=== PATIENT | female | born 1955 | race Caucasian/White ===

== ENCOUNTER 2017-02-14 12:16 | Inpatient (IN) | payer OTHER ==
[2017-02-14] VITALS (8 sets, daily range): BP systolic 122–183; BP diastolic 67–80
[~2017-02-14] VITALS: Ht 152.4 cm; Wt 71.2 kg
--- NOTE | ~2017-02-14 | PROC NOTE ---
[place], [place] PROCEDURE NOTE NAME: [facility]CO [facility] [id number] UNIT #: [id number] ROOM: 412 DOCTOR: SUSANA FRANK BIRTHDATE: [birth year] DOS: 02/15/2017 PROCEDURE: Modified barium swallow. PAST MEDICAL HISTORY: The patient has an improved right basilar pneumonia with residual infiltrate per recent chest x-ray. She has a history of diabetes, obesity, UTI, dysphagia, sepsis, acute renal failure, diabetes mellitus and is currently on an ADA 1800-calorie diet. METHODS AND MATERIALS: The patient was seated upright in a wheelchair. She was viewed in the lateral plane. She was able to follow directions and self-feed. The patient denies neuro history. She denies chronic pneumonia. Reports she lives at home and cares for herself. She is edentulous, reports she does not have dentures and has difficulty chewing regular food. Therefore, she was administered thin liquid barium via cup and pudding mixed with paste and a soft piece of bread mixed with barium paste. ORAL PHASE: The patient demonstrated adequate mastication, bolus formation, transfer of a bolus, and had no oral residue. She took a large bite of solid food and did use multiple swallows, but adequately controlled them and her oral phase was functional and normal on all consistencies. PHARYNGEAL PHASE: The patient demonstrated adequate laryngeal elevation, adequate airway protection, no residue in the pharynx, no penetration aspiration. Her overall pharyngeal phase was normal. RECOMMENDATIONS AND IMPRESSION: The patient has normal oral and pharyngeal phases of the swallow. No therapy is recommended. It is recommended she receives a mechanical soft diet due to being edentulous and reporting she has difficulty chewing regular foods. Thank you for this referral. SUSANA FRANK CM:PROCNOTE:PROCEDURE NOTE [id number] SUSANA FRANK
[~2017-02-14 12:16] MED LIST: ABILIFY5 MG PO; AMOXICILLIN500 M2 PO; ASPIRIN CHEWABL81 MG PO; GABAPENTIN100 M2 PO; GLIPIZIDE XL5 M1 PO; GLIPIZIDE5 MG PO; HUMALOG100 U/ML SC; IMODIUM A-D2 M2 PO; INVEGA9 MG PO; JANUVIA100 MG PO; LAC CREAM12% TP; LEVAQUIN750 M1 PO; LEXAPRO10 MG PO; LISINOPRIL10 M1 PO; METFOMIN HYDRO850 MG PO; METFORMIN1000 MG PO; MIRTAZAPINE15 M2 PO; MUCINEX ER600 MG PO; MULTI VITAMINS1 TAB PO; Motrin,Rufen800 MG PO; NOVOLOG MI100 UNIT/1 SQ; PRAVASTATIN SOD20 MG PO; PREDNISONE10 MG PO; RISPERDAL0.5 MG PO; RISPERDAL2 M1 PO; TOUJEO300 U/ML SC; TYLENOL325 M1 PO; VITAMIN D50000 I3 PO; VITAMIN D50000 UNIT PO; ZESTRIL10 MG PO
[2017-02-14 12:57] LABS: HEMATOCRIT 34.5 % (37.0-47.0); HEMOGLOBIN 11.8 g/dl (12.0-16.0); MEAN CELL VOLUME 84.4 fl (81.0-99.0); MEAN CORPUSCULAR HGB 28.9 pg (27.0-31.0); MEAN CORPUSCULAR HGB CONC 34.2 g/dl (33.0-37.0); MEAN PLATELET VOLUME 9.2 fl (9.6-12.3); PLATELET COUNT AUTOMATED 279 10*3/uL (130-400); RED BLOOD COUNT 4.09 10*6/uL (4.10-5.10); RED CELL DISTRI WIDTH 13.5 % (0-14.5); WHITE BLOOD COUNT 13.2 10*3/uL (4.8-10.8)
[2017-02-14 13:15] LABS: ALBUMIN 3.1 gm/dl (3.1-4.5); ALKALINE PHOSPHATASE 57 U/L (45-117); BILIRUBIN, TOTAL 0.4 mg/dl (0.2-1.0); BUN 37 mg/dl (7-24); CARBON DIOXIDE 26 mmol/L (21-32); CHLORIDE 95 mmol/L (98-107); EST GLOM FILT AFRICAN AMERICAN 51 ml/min; GLUCOSE 403 mg/dL (65-99); POTASSIUM 4.4 mmol/L (3.5-5.1); SGOT/AST 7 IU/L (3-35); SGPT/ALT 21 U/L (12-78); SODIUM 135 mmol/L (136-145); TOTAL PROTEIN 6.6 gm/dL (6.4-8.2)
[2017-02-14 13:16] LABS: LYMPHOCYTE # 0.4 10*3/uL (1.3-4.4); MONOCYTE # 0.5 10*3/uL (0.1-1.0); MYELOCYTES 2 % (0-0); NEUTROPHILS 91 % (47-73); PLATELET SUFFICIENCY NORMAL (NORMAL); TOTAL CELLS COUNTED 100 #CELLS; TROPONIN I < 0.015 ng/ml (<0.045)
[2017-02-14] MEDS ORDERED: LISINOPRIL-HYDR1 TA3 PO (16:59)
[2017-02-14] MEDS ORDERED: COGENTIN0.5 MG PO (17:02)
[2017-02-14] MEDS ORDERED: GUAIFENESIN600 MG PO (17:09)
[2017-02-14 18:19] LABS: CKMB 1.4 ng/ml (0.5-3.6); CPK 53 U/L (26-192); TROPONIN I < 0.015 ng/ml (<0.045)
[2017-02-15] VITALS: BP 158/83
[2017-02-15 00:40] LABS: CKMB 0.9 ng/ml (0.5-3.6); CPK 39 U/L (26-192)
[2017-02-15 00:41] LABS: TROPONIN I < 0.015 ng/ml (<0.045)
[2017-02-15 06:11] LABS: EOS # 0.1 10*3/uL (0.0-0.4); EOS % 0.9 % (1.0-4.0); HEMATOCRIT 30.6 % (37.0-47.0); HEMOGLOBIN 10.2 g/dl (12.0-16.0); IG # 0.1 10*3/uL (0.0-0.1); LYMPH # 1.7 10*3/uL (1.3-4.4); LYMPH % 24.3 % (27.0-41.0); MEAN CORPUSCULAR HGB 28.7 pg (27.0-31.0); MEAN CORPUSCULAR HGB CONC 33.3 g/dl (33.0-37.0); MEAN PLATELET VOLUME 9.1 fl (9.6-12.3); MONO # 0.6 10*3/uL (0.1-1.0); MONO % 8.2 % (3.0-9.0); NEUT # 4.6 10*3/uL (2.3-7.9); NEUT % 64.8 % (47.0-73.0); PLATELET COUNT AUTOMATED 217 10*3/uL (130-400); RED BLOOD COUNT 3.56 10*6/uL (4.10-5.10); RED CELL DISTRI WIDTH 13.3 % (0-14.5); WHITE BLOOD COUNT 7.1 10*3/uL (4.8-10.8)
[2017-02-15 06:26] LABS: CPK 36 U/L (26-192)
[2017-02-15 06:32] LABS: CKMB < 0.5 ng/ml (0.5-3.6); TROPONIN I < 0.015 ng/ml (<0.045)
[2017-02-15 06:39] LABS: CARBON DIOXIDE 26 mmol/L (21-32); CHLORIDE 103 mmol/L (98-107); CHOLESTEROL 156 mg/dL (<200); EST GLOM FILT AFRICAN AMERICAN > 60 ml/min; GLUCOSE 176 mg/dL (65-99); HDL CHOLESTEROL 40 mg/dl (40-60); LDL CHOLESTEROL 70 mg/dL (9-159); MAGNESIUM 1.4 mg/dL (1.5-2.1); PHOSPHOROUS 2.7 mg/dL (2.5-4.9); POTASSIUM 3.7 mmol/L (3.5-5.1); SODIUM 140 mmol/L (136-145); TRIGLYCERIDES 228 mg/dl (<150); VLDL CHOLESTEROL 46 mg/dL (6-40)
[2017-02-15 06:46] LABS: FREE T4 1.44 ng/dl (0.76-1.46)
[2017-02-15 06:47] LABS: BUN 25 mg/dl (7-24)
[2017-02-15 08:00] VITALS: BP 190/74
[2017-02-15 12:00] VITALS: BP 168/76
[2017-02-15] MEDS ORDERED: COREG6.25 MG PO (13:22)
== END 2017-02-15 13:55 | disposition home or self-care (01) | DRG 871 ==
LOC: ED 12:16 → 4E 14:48 → EDHOLD 14:48 → 4E 15:21
PROVIDERS: Internal Medicine; Nurse Practitioner Family
PROC: BD1BYZZ Fluoroscopy of Mouth/Oropharynx using Other Contrast (ICD-10-PCS; principal; 2017-02-15)
DX: A41.9 Sepsis, unspecified organism (principal); N17.0 Acute kidney failure with tubular necrosis; E44.0 Moderate protein-calorie malnutrition; F32.2 Major depressive disorder, single episode, severe without psychotic features; D64.9 Anemia, unspecified; E11.65 Type 2 diabetes mellitus with hyperglycemia; I10 Essential (primary) hypertension; E66.9 Obesity, unspecified; E78.5 Hyperlipidemia, unspecified; F41.9 Anxiety disorder, unspecified; R13.10 Dysphagia, unspecified; Z87.440 Personal history of urinary (tract) infections; Z90.710 Acquired absence of both cervix and uterus; Z98.49 Cataract extraction status, unspecified eye; Z82.49 Family history of ischemic heart disease and other diseases of the circulatory system; Z88.8 Allergy status to other drugs, medicaments and biological substances; Z79.82 Long term (current) use of aspirin; Z79.899 Other long term (current) drug therapy; Z79.84 Long term (current) use of oral hypoglycemic drugs; Z68.28 Body mass index [BMI] 28.0-28.9, adult

== ENCOUNTER → 2017-03-21 | Outpatient (CLI) | payer OTHER ==
[~2017-03-21] MED LIST changes: +COGENTIN0.5 MG PO; +COREG6.25 MG PO; +GUAIFENESIN600 MG PO; +LISINOPRIL-HYDR1 TA3 PO
[2017-03-21 11:18] LABS: HEMATOCRIT 31.7 % (37.0-47.0); HEMOGLOBIN 10.5 g/dl (12.0-16.0); IRF 12.5 % (2.4-13.3); MEAN CELL VOLUME 84.1 fl (81.0-99.0); MEAN CORPUSCULAR HGB 27.9 pg (27.0-31.0); MEAN CORPUSCULAR HGB CONC 33.1 g/dl (33.0-37.0); MEAN PLATELET VOLUME 9.2 fl (9.6-12.3); PLATELET COUNT AUTOMATED 338 10*3/uL (130-400); RED BLOOD COUNT 3.77 10*6/uL (4.10-5.10); RET-He 32.5 pg (32.1-37.9); WHITE BLOOD COUNT 7.6 10*3/uL (4.8-10.8)
[2017-03-21 11:43] LABS: BASOPHIL # 0.2 10*3/uL (0-0.1); BASOPHILS 2 % (0-1); EOSINOPHIL # 0.4 10*3/uL (0-0.4); EOSINOPHILS 5 % (1-4); LYMPHOCYTE # 1.1 10*3/uL (1.3-4.4); MONOCYTE # 0.2 10*3/uL (0.1-1.0); NEUTROPHIL # 5.7 10*3/uL (2.3-7.9); NEUTROPHILS 75 % (47-73); OVALOCYTES FEW; PLATELET SUFFICIENCY NORMAL (NORMAL); TOTAL CELLS COUNTED 100 #CELLS
[2017-03-21 11:46] LABS: ALBUMIN 3.6 gm/dl (3.1-4.5); BILIRUBIN, TOTAL 0.4 mg/dl (0.2-1.0); POTASSIUM 4.2 mmol/L (3.5-5.1)
[2017-03-21 11:51] LABS: THYROID STIM HORMONE (HS) 1.8 uIU/ml (0.358-4.75)
[2017-03-21 18:43] LABS: BILIRUBIN NEGATIVE (NEGATIVE); BLOOD NEGATIVE (NEGATIVE); CLARITY CLEAR (CLEAR); COLOR YELLOW (YELLOW); GLUCOSE NEGATIVE (NEGATIVE); KETONE NEGATIVE (NEGATIVE); LEUKO ESTERASE 2+ (NEGATIVE); NITRITE NEGATIVE (NEGATIVE); PROTEIN NEGATIVE (NEGATIVE); UROBILINOGEN 0.2 E.U./dl (0.2-1.0)
[2017-03-21 18:49] LABS: RBC 0-2 rbc/hpf (0-2)
[2017-03-21 18:50] LABS: BACTERIA 1+; URINE REFLEX COMMENT YES (NO)
== END | disposition home or self-care (01) ==
LOC: LAB 10:29
PROVIDERS: Family Medicine
DX: D64.9 Anemia, unspecified (principal); R63.4 Abnormal weight loss; R53.83 Other fatigue; R63.0 Anorexia

== ENCOUNTER → 2017-04-01 | Outpatient (CLI) | payer OTHER | END | disposition home or self-care (01) | LOC: MAMMO 01:22 | DX: Z12.31 Encounter for screening mammogram for malignant neoplasm of breast (principal) ==

== ENCOUNTER → 2017-04-12 | Day surgery (SDC) | payer OTHER ==
[~2017-04-12] VITALS: Ht 152.4 cm; Wt 62.6 kg
[~2017-04-12] MED LIST changes: +LATU40TA1 PO; +TRINTELLIX10 MG PO
--- NOTE | ~2017-04-12 | PROC NOTE ---
[place], [place] PROCEDURE NOTE NAME: BRIANNE NOLASCO UNIT #: [id number] ROOM: DOCTOR: JOHNATHAN NUNO MD BIRTHDATE: [birth year] DOS: 04/12/2017 PREOPERATIVE DIAGNOSIS: Screening examination. POSTOPERATIVE DIAGNOSIS: Sigmoid polyp. PROCEDURE: Colonoscopy with polypectomy. ENDOSCOPIST: Johnathan Nuno MD PROVIDER ENROLLMENT SPECIALIST: MS4. ANESTHESIA: MAC. INDICATIONS: This is a 62-year-old lady with a previous history of a colonoscopy done approximately 15 years ago who is here for another screening examination. The procedure and its complications explained to the patient in detail preoperatively. Complications that were discussed included but were not limited to, bleeding, colon perforation, and missed lesions. She agreed to proceed. DESCRIPTION OF PROCEDURE: After identifying the patient, the patient was brought to the endoscopy suite and placed in the left lateral position. After time-out procedure was called, IV sedation was administered and a digital rectal exam was performed. This was within normal limits. An adult colonoscope was now introduced into the anal canal and advanced sequentially into the rectum, descending colon, transverse colon and ascending colon up to the cecum. The prep was found to be optimal. Upon reaching the cecum, the scope was withdrawn. Total withdrawal time was approximately 7 minutes and 45 seconds. During the procedure of the withdrawal, there was a polyp that was seen at 30 cm from the anal verge. This was found to be pedunculated. It was removed with the help of a snare and then removed and sent for histopathological diagnosis. Hemostasis was confirmed by reintroducing the scope and visualizing the polypectomy site again. After the scope was withdrawn, the patient was taken to the recovery room in stable fashion. Based on these findings, the patient is recommended to have another colonoscopy in 1 to 3 years. I will discuss this finding with the patient's family and with the patient itself in 2 weeks when I see her in the office. Thank you very much. [place], [place] PROCEDURE NOTE NAME: BRIANNE NOLASCO UNIT #: [id number] ROOM: DOCTOR: JOHNATHAN NUNO MD BIRTHDATE: [birth year] Johnathan Nuno MD CM:PROCNOTE:PROCEDURE NOTE [id number] JOHNATHAN NUNO MD
[2017-04-12 06:30] VITALS: BP 151/75
[2017-04-12 08:18] VITALS: BP 132/65
[2017-04-12 08:33] VITALS: BP 141/68
[2017-04-12 08:48] VITALS: BP 149/70
== END | disposition home or self-care (01) ==
LOC: SDC 04-10 11:00
DX: Z12.11 Encounter for screening for malignant neoplasm of colon (principal); D12.5 Benign neoplasm of sigmoid colon; I10 Essential (primary) hypertension; E78.00 Pure hypercholesterolemia, unspecified; E11.9 Type 2 diabetes mellitus without complications; F41.9 Anxiety disorder, unspecified; F20.0 Paranoid schizophrenia; Z90.710 Acquired absence of both cervix and uterus; Z98.49 Cataract extraction status, unspecified eye; Z83.3 Family history of diabetes mellitus; Z80.9 Family history of malignant neoplasm, unspecified; Z82.49 Family history of ischemic heart disease and other diseases of the circulatory system

== ENCOUNTER 2017-06-21 10:23 | Inpatient (IN) | payer OTHER ==
[~2017-06-21] VITALS: Ht 152.4 cm; Wt 64.4 kg
[2017-06-21 10:30] VITALS: BP 120/60
[2017-06-21 11:35] VITALS: BP 120/67
[2017-06-21 11:56] LABS: BASO % 0.8 % (0.0-1.0); EOS # 0.4 10*3/uL (0.0-0.4); EOS % 7.2 % (1.0-4.0); HEMATOCRIT 27.5 % (37.0-47.0); HEMOGLOBIN 9.3 g/dl (12.0-16.0); LYMPH # 1.1 10*3/uL (1.3-4.4); LYMPH % 23.2 % (27.0-41.0); MEAN CELL VOLUME 85.1 fl (81.0-99.0); MEAN CORPUSCULAR HGB 28.8 pg (27.0-31.0); MEAN CORPUSCULAR HGB CONC 33.8 g/dl (33.0-37.0); MEAN PLATELET VOLUME 9.2 fl (9.6-12.3); MONO # 0.4 10*3/uL (0.1-1.0); MONO % 7.2 % (3.0-9.0); NEUT % 61.2 % (47.0-73.0); PLATELET COUNT AUTOMATED 234 10*3/uL (130-400); RED BLOOD COUNT 3.23 10*6/uL (4.10-5.10); RED CELL DISTRI WIDTH 14.1 % (0-14.5); WHITE BLOOD COUNT 4.8 10*3/uL (4.8-10.8)
[2017-06-21 12:02] LABS: INTERNATIONAL NORM RATIO 1.1 (2.0-3.5); PROTHROMBIN TIME 11.3 SECONDS (9.0-12.4)
[2017-06-21 12:09] LABS: ALBUMIN 3.1 gm/dl (3.1-4.5); ALKALINE PHOSPHATASE 42 U/L (45-117); BILIRUBIN, TOTAL 0.1 mg/dl (0.2-1.0); BUN 36 mg/dl (7-24); C-REACTIVE PROTEIN 0.31 MG/DL (0-0.3); CARBON DIOXIDE 21 mmol/L (21-32); CHLORIDE 105 mmol/L (98-107); CPK 24 U/L (26-192); EST GLOM FILT AFRICAN AMERICAN 44 ml/min; GLUCOSE 116 mg/dL (65-99); MAGNESIUM 1.2 mg/dL (1.5-2.1); POTASSIUM 4.4 mmol/L (3.5-5.1); SGOT/AST 8 IU/L (3-35); SGPT/ALT 17 U/L (12-78); SODIUM 137 mmol/L (136-145); TOTAL PROTEIN 6.8 gm/dL (6.4-8.2)
[2017-06-21 12:10] LABS: CKMB < 0.5 ng/ml (0.5-3.6); TROPONIN I < 0.015 ng/ml (<0.045)
[2017-06-21 12:30] VITALS: BP 135/65
[2017-06-21 13:48] LABS: LA>2 REFLEX 2 HR DRAW NOW
[2017-06-21 14:53] LABS: LA>2 RFLX FOLLOW UP AT 2 HRS 3.2 mmol/L (0.4-2.0)
[2017-06-21 16:00] VITALS: BP 142/77
[2017-06-21 16:38] LABS: LA>2 REFLEX 4 HR DRAW NOW
[2017-06-21 20:00] VITALS: BP 156/75
[2017-06-22] VITALS: BP 158/75
[2017-06-22 06:16] LABS: BASO % 0.5 % (0.0-1.0); EOS # 0.3 10*3/uL (0.0-0.4); EOS % 6.3 % (1.0-4.0); HEMATOCRIT 24.8 % (37.0-47.0); HEMOGLOBIN 8.6 g/dl (12.0-16.0); LYMPH # 1.2 10*3/uL (1.3-4.4); LYMPH % 29.4 % (27.0-41.0); MEAN CELL VOLUME 84.6 fl (81.0-99.0); MEAN CORPUSCULAR HGB 29.4 pg (27.0-31.0); MEAN CORPUSCULAR HGB CONC 34.7 g/dl (33.0-37.0); MEAN PLATELET VOLUME 9.1 fl (9.6-12.3); MONO # 0.4 10*3/uL (0.1-1.0); MONO % 9.1 % (3.0-9.0); NEUT # 2.1 10*3/uL (2.3-7.9); NEUT % 54.4 % (47.0-73.0); PLATELET COUNT AUTOMATED 215 10*3/uL (130-400); RED BLOOD COUNT 2.93 10*6/uL (4.10-5.10); WHITE BLOOD COUNT 3.9 10*3/uL (4.8-10.8)
[2017-06-22 06:38] LABS: BILIRUBIN NEGATIVE (NEGATIVE); BLOOD NEGATIVE (NEGATIVE); CLARITY CLEAR (CLEAR); COLOR YELLOW (YELLOW); GLUCOSE NEGATIVE (NEGATIVE); KETONE NEGATIVE (NEGATIVE); LEUKO ESTERASE NEGATIVE (NEGATIVE); NITRITE NEGATIVE (NEGATIVE); PROTEIN NEGATIVE (NEGATIVE); SPECIFIC GRAVITY <= 1.005 (1.005-1.030); UROBILINOGEN 0.2 E.U./dl (0.2-1.0)
[2017-06-22 06:41] LABS: INTERNATIONAL NORM RATIO 1.1 (2.0-3.5); PROTHROMBIN TIME 11.7 SECONDS (9.0-12.4)
[2017-06-22 06:42] LABS: ALBUMIN 2.9 gm/dl (3.1-4.5); BILIRUBIN, TOTAL 0.2 mg/dl (0.2-1.0); MAGNESIUM 1.2 mg/dL (1.5-2.1); PHOSPHOROUS 3.7 mg/dL (2.5-4.9); POTASSIUM 3.9 mmol/L (3.5-5.1)
[2017-06-22 06:47] LABS: URINE REFLEX COMMENT NO (NO)
[2017-06-22 06:47] LABS: TOTAL PROTEIN 6.1 gm/dL (6.4-8.2)
[2017-06-22 06:51] LABS: HEMOGLOBIN A1c 6.4 % (4.8-5.6)
[2017-06-22 07:02] LABS: THYROID STIM HORMONE (HS) 5.31 uIU/ml (0.358-4.75)
[2017-06-22 08:00] VITALS: BP 154/68
[2017-06-22 10:09] LABS: VITAMIN D, 25-HYDROXY 36.2 ng/mL (30-100)
[2017-06-22 10:13] LABS: FOLIC ACID > 24.00 ng/mL (>5.38)
[2017-06-22 12:00] VITALS: BP 147/69
[2017-06-22 16:00] VITALS: BP 154/70
[2017-06-22 20:00] VITALS: BP 173/75
[2017-06-23] VITALS: BP 143/64
[2017-06-23 06:30] LABS: BASO % 0.7 % (0.0-1.0); EOS # 0.3 10*3/uL (0.0-0.4); EOS % 6.5 % (1.0-4.0); HEMATOCRIT 27.1 % (37.0-47.0); HEMOGLOBIN 9.2 g/dl (12.0-16.0); LYMPH # 1.4 10*3/uL (1.3-4.4); LYMPH % 31.2 % (27.0-41.0); MEAN CELL VOLUME 84.4 fl (81.0-99.0); MEAN CORPUSCULAR HGB 28.7 pg (27.0-31.0); MEAN CORPUSCULAR HGB CONC 33.9 g/dl (33.0-37.0); MEAN PLATELET VOLUME 8.7 fl (9.6-12.3); MONO # 0.4 10*3/uL (0.1-1.0); MONO % 8.3 % (3.0-9.0); NEUT # 2.4 10*3/uL (2.3-7.9); NEUT % 53.1 % (47.0-73.0); PLATELET COUNT AUTOMATED 224 10*3/uL (130-400); RED BLOOD COUNT 3.21 10*6/uL (4.10-5.10); RED CELL DISTRI WIDTH 13.9 % (0-14.5); WHITE BLOOD COUNT 4.5 10*3/uL (4.8-10.8)
[2017-06-23 06:55] LABS: BUN 25 mg/dl (7-24); CARBON DIOXIDE 23 mmol/L (21-32); CHLORIDE 110 mmol/L (98-107); EST GLOM FILT AFRICAN AMERICAN > 60 ml/min; GLUCOSE 109 mg/dL (65-99); POTASSIUM 3.8 mmol/L (3.5-5.1); SODIUM 143 mmol/L (136-145)
[2017-06-23 08:00] VITALS: BP 137/64
[2017-06-23 12:00] VITALS: BP 134/67
[2017-06-23 16:00] VITALS: BP 136/86
[2017-06-23 20:00] VITALS: BP 149/68
[2017-06-24] VITALS: BP 162/73
[2017-06-24 06:46] LABS: BASO % 0.6 % (0.0-1.0); EOS # 0.3 10*3/uL (0.0-0.4); EOS % 5.3 % (1.0-4.0); HEMATOCRIT 26.9 % (37.0-47.0); HEMOGLOBIN 9.3 g/dl (12.0-16.0); LYMPH # 1.7 10*3/uL (1.3-4.4); LYMPH % 31.8 % (27.0-41.0); MEAN CELL VOLUME 85.1 fl (81.0-99.0); MEAN CORPUSCULAR HGB 29.4 pg (27.0-31.0); MEAN CORPUSCULAR HGB CONC 34.6 g/dl (33.0-37.0); MEAN PLATELET VOLUME 8.8 fl (9.6-12.3); MONO # 0.5 10*3/uL (0.1-1.0); MONO % 8.5 % (3.0-9.0); NEUT # 2.8 10*3/uL (2.3-7.9); NEUT % 53.6 % (47.0-73.0); PLATELET COUNT AUTOMATED 229 10*3/uL (130-400); RED BLOOD COUNT 3.16 10*6/uL (4.10-5.10); RED CELL DISTRI WIDTH 13.9 % (0-14.5); WHITE BLOOD COUNT 5.3 10*3/uL (4.8-10.8)
[2017-06-24 07:11] LABS: BUN 21 mg/dl (7-24); CARBON DIOXIDE 25 mmol/L (21-32); CHLORIDE 109 mmol/L (98-107); EST GLOM FILT AFRICAN AMERICAN > 60 ml/min; GLUCOSE 117 mg/dL (65-99); POTASSIUM 3.6 mmol/L (3.5-5.1); SODIUM 141 mmol/L (136-145)
[2017-06-24 08:00] VITALS: BP 100/60
[2017-06-24 12:00] VITALS: BP 165/83
[2017-06-24 16:00] VITALS: BP 141/68
[2017-06-24 20:00] VITALS: BP 146/64
[2017-06-25] VITALS: BP 122/63
[2017-06-25 06:11] LABS: POTASSIUM 3.6 mmol/L (3.5-5.1)
[2017-06-25 06:14] LABS: BASO % 0.4 % (0.0-1.0); EOS # 0.3 10*3/uL (0.0-0.4); EOS % 3.4 % (1.0-4.0); HEMATOCRIT 27.7 % (37.0-47.0); HEMOGLOBIN 9.3 g/dl (12.0-16.0); LYMPH # 1.6 10*3/uL (1.3-4.4); LYMPH % 19.8 % (27.0-41.0); MEAN CORPUSCULAR HGB 28.5 pg (27.0-31.0); MEAN CORPUSCULAR HGB CONC 33.6 g/dl (33.0-37.0); MEAN PLATELET VOLUME 9.1 fl (9.6-12.3); MONO # 0.6 10*3/uL (0.1-1.0); MONO % 7.1 % (3.0-9.0); NEUT # 5.4 10*3/uL (2.3-7.9); NEUT % 68.9 % (47.0-73.0); PLATELET COUNT AUTOMATED 251 10*3/uL (130-400); RED BLOOD COUNT 3.26 10*6/uL (4.10-5.10); RED CELL DISTRI WIDTH 13.8 % (0-14.5); WHITE BLOOD COUNT 7.8 10*3/uL (4.8-10.8)
[2017-06-25 08:00] VITALS: BP 145/64
== END 2017-06-25 13:57 | disposition other institution (70) | DRG 683 ==
LOC: ED 10:23 → 5E 11:32 → EDHOLD 11:32 → 5E 11:39
PROVIDERS: Emergency Medicine; Hospitalist; Internal Medicine; Internal Medicine Nephrology
DX: N17.0 Acute kidney failure with tubular necrosis (principal); F32.3 Major depressive disorder, single episode, severe with psychotic features; E11.65 Type 2 diabetes mellitus with hyperglycemia; E83.42 Hypomagnesemia; R13.10 Dysphagia, unspecified; R26.81 Unsteadiness on feet; F41.9 Anxiety disorder, unspecified; D64.9 Anemia, unspecified; D72.810 Lymphocytopenia; E66.9 Obesity, unspecified; E78.5 Hyperlipidemia, unspecified; I10 Essential (primary) hypertension; N95.0 Postmenopausal bleeding; M79.602 Pain in left arm; Z79.4 Long term (current) use of insulin; Z88.8 Allergy status to other drugs, medicaments and biological substances; Z87.440 Personal history of urinary (tract) infections; Z90.710 Acquired absence of both cervix and uterus; Z98.41 Cataract extraction status, right eye; Z98.42 Cataract extraction status, left eye; Z82.49 Family history of ischemic heart disease and other diseases of the circulatory system; Z80.9 Family history of malignant neoplasm, unspecified; Z83.3 Family history of diabetes mellitus; Z79.82 Long term (current) use of aspirin; Z79.899 Other long term (current) drug therapy; Z79.84 Long term (current) use of oral hypoglycemic drugs; Z68.27 Body mass index [BMI] 27.0-27.9, adult

== ENCOUNTER 2018-11-05 06:58 | Inpatient (IN) | payer MEDICARE, MEDICAID ==
[2018-11-05] VITALS (12 sets, daily range): BP systolic 104–155; BP diastolic 26–81
[~2018-11-05] VITALS: Ht 154.9 cm; Wt 77.3 kg
--- NOTE | ~2018-11-05 | EKG ---
[place], [place] ELECTROCARDIOGRAM REPORT NAME: BRIANNE NOLASCO UNIT #: [id number] ROOM: [facility] DOCTOR: DERRICK DRAFT REPORT BIRTHDATE: [birth year] [facility] Test Date: 2018-11-05 Test Time: 13:05:31 Pat Name: BRIANNE NOLASCO Department: Room: [facility] 1 Gender: F Tablet Repair: Xochilt Bedolla : 1955 Requested By: YONAS QUINTANA Order Number: [id number] Reading MD: Amy Pack MD Measurements Intervals [place] Rate: 99 P: 40 OK: 208 QRS: -38 QRSD: 97 T: 33 QT: 366 QTc: 470 Interpretive Statements Sinus rhythm Inferior infarct, old Consider anterior infarct Electronically Signed On 11-07-2018 8:47:46 PST by Amy Pack MD CM:EKGRPT:ELECTROCARDIOGRAM REPORT [id number] YONAS MAJANO DRAFT REPORT YONAS QUINTANA DO
--- NOTE | ~2018-11-05 | EKG ---
[place], [place] ELECTROCARDIOGRAM REPORT NAME: BRIANNE NOLASCO UNIT #: [id number] ROOM: [facility] DOCTOR: DERRICK DRAFT REPORT BIRTHDATE: [birth year] [facility] Test Date: 2018-11-05 Test Time: 07:34:28 Pat Name: BRIANNE NOLASCO Department: Room: [facility] Gender: F Muffler Tender: Xochilt Bedolla : 1955 Requested By: SUSIE MACIAS Order Number: [id number] Reading MD: Amy Pack MD Measurements Intervals [place] Rate: 99 P: 40 SD: 199 QRS: -47 QRSD: 97 T: 44 QT: 343 QTc: 441 Interpretive Statements Sinus rhythm Abnormal R-wave progression, late transition Inferior infarct, old Electronically Signed On 11-07-2018 8:47:37 PST by Amy Pack MD CM:EKGRPT:ELECTROCARDIOGRAM REPORT [id number] SUSIE MEZA DRAFT REPORT SUSIE MACIAS MD
[~2018-11-05 06:58] MED LIST changes: +LATU20TA PO; -LATU40TA1 PO; -LISINOPRIL-HYDR1 TA3 PO; +ZESTORETIC 10-1 EACH PO
[2018-11-05 07:48] LABS: BASO % 0.3 % (0.0-1.0); EOS # 0.1 10*3/uL (0.0-0.4); EOS % 0.7 % (1.0-4.0); HEMATOCRIT 27.8 % (37.0-47.0); HEMOGLOBIN 8.8 g/dl (12.0-16.0); LYMPH % 9.4 % (27.0-41.0); MEAN CORPUSCULAR HGB 29.4 pg (27.0-31.0); MEAN CORPUSCULAR HGB CONC 31.7 g/dl (33.0-37.0); MEAN PLATELET VOLUME 9.2 fl (9.6-12.3); MONO # 0.7 10*3/uL (0.1-1.0); MONO % 6.8 % (3.0-9.0); NEUT # 8.6 10*3/uL (2.3-7.9); NEUT % 81.9 % (47.0-73.0); PLATELET COUNT AUTOMATED 237 10*3/uL (130-400); RED BLOOD COUNT 2.99 10*6/uL (4.10-5.10); RED CELL DISTRI WIDTH 15.6 % (0-14.5); WHITE BLOOD COUNT 10.5 10*3/uL (4.8-10.8)
[2018-11-05 07:59] LABS: BILIRUBIN NEGATIVE (NEGATIVE); BLOOD TRACE-LYSED (NEGATIVE); CLARITY CLOUDY (CLEAR); COLOR YELLOW (YELLOW); GLUCOSE NEGATIVE (NEGATIVE); KETONE NEGATIVE (NEGATIVE); LEUKO ESTERASE 1+ (NEGATIVE); NITRITE NEGATIVE (NEGATIVE); SPECIFIC GRAVITY 1.025 (1.005-1.030); UROBILINOGEN 0.2 E.U./dl (0.2-1.0)
[2018-11-05 08:10] LABS: BACTERIA 4+; EPITHELIAL CELLS 0-2
[2018-11-05 08:46] LABS: ACT PARTIAL THROMBO TIME 31.7 SECONDS (20.8-31.5); INTERNATIONAL NORM RATIO 1.1 (2.0-3.5)
[2018-11-05 09:06] LABS: ALBUMIN 2.8 gm/dl (3.1-4.5); ALKALINE PHOSPHATASE 67 U/L (45-117); BUN 86 mg/dl (7-24); CHLORIDE 111 mmol/L (98-107); CREATININE 7.69 mg/dL (0.55-1.02); LIPASE 76 U/L (73-393); SGOT/AST 13 IU/L (3-35); SGPT/ALT 28 U/L (12-78); SODIUM 135 mmol/L (136-145); TOTAL PROTEIN 6.4 gm/dL (6.4-8.2)
[2018-11-05 09:09] LABS: POTASSIUM 8.5 mmol/L (3.5-5.1); TROPONIN I < 0.015 ng/ml (<0.045)
[2018-11-05 11:32] LABS: CREATININE 7.35 mg/dL (0.55-1.02)
[2018-11-05 11:34] LABS: POTASSIUM 8.6 mmol/L (3.5-5.1)
[2018-11-05 13:28] LABS: VENOUS BLOOD GAS O2 SAT 10.9 % (40-85); VENOUS PH 7.017 (7.32-7.43)
[2018-11-05 13:43] LABS: CREATININE 7.02 mg/dL (0.55-1.02)
[2018-11-05 13:46] LABS: POTASSIUM 7.3 mmol/L (3.5-5.1)
[2018-11-05] MEDS ORDERED: LIPITOR10 MG PO (14:28)
[2018-11-05] MEDS ORDERED: JANUVIA50 MG PO (14:32)
[2018-11-05] MEDS ORDERED: REMERON15 M2 PO (14:36)
[2018-11-05 16:23] LABS: CREATININE 7.41 mg/dL (0.55-1.02)
[2018-11-05 16:25] LABS: POTASSIUM 8.1 mmol/L (3.5-5.1)
[2018-11-05 23:32] LABS: BASO % 0.2 % (0.0-1.0); EOS % 0.2 % (1.0-4.0); HEMOGLOBIN 7.2 g/dl (12.0-16.0); LYMPH # 1.1 10*3/uL (1.3-4.4); LYMPH % 11.7 % (27.0-41.0); MEAN CORPUSCULAR HGB 30.4 pg (27.0-31.0); MEAN CORPUSCULAR HGB CONC 35.1 g/dl (33.0-37.0); MEAN PLATELET VOLUME 9.2 fl (9.6-12.3); MONO # 1.2 10*3/uL (0.1-1.0); MONO % 12.6 % (3.0-9.0); NEUT # 6.9 10*3/uL (2.3-7.9); NEUT % 73.6 % (47.0-73.0); PLATELET COUNT AUTOMATED 195 10*3/uL (130-400); RED BLOOD COUNT 2.37 10*6/uL (4.10-5.10); RED CELL DISTRI WIDTH 15.1 % (0-14.5); WHITE BLOOD COUNT 9.4 10*3/uL (4.8-10.8)
[2018-11-05 23:34] LABS: HEMATOCRIT 20.5 % (37.0-47.0); MEAN CELL VOLUME 86.5 fl (81.0-99.0)
[2018-11-05 23:37] LABS: CREATININE 3.98 mg/dL (0.55-1.02)
[2018-11-05 23:42] LABS: POTASSIUM 3.9 mmol/L (3.5-5.1)
[2018-11-06] VITALS: BP 127/49
[2018-11-06 02:05] LABS: URINE CREATININE RANDOM 23.9 mg/dL
[2018-11-06 04:00] VITALS: BP 131/55
[2018-11-06 05:37] LABS: ALBUMIN 2.3 gm/dl (3.1-4.5); CREATININE 4.4 mg/dL (0.55-1.02); PHOSPHOROUS 4.6 mg/dL (2.5-4.9); POTASSIUM 4.4 mmol/L (3.5-5.1); TOTAL PROTEIN 5.4 gm/dL (6.4-8.2)
[2018-11-06 05:43] LABS: FREE T4 1.06 ng/dl (0.76-1.46); THYROID STIM HORMONE (HS) 1.26 uIU/ml (0.358-4.75)
[2018-11-06 05:52] LABS: BASO % 0.1 % (0.0-1.0); EOS % 0.3 % (1.0-4.0); HEMATOCRIT 21.6 % (37.0-47.0); HEMOGLOBIN 7.3 g/dl (12.0-16.0); LYMPH # 0.8 10*3/uL (1.3-4.4); LYMPH % 8.7 % (27.0-41.0); MEAN CELL VOLUME 87.1 fl (81.0-99.0); MEAN CORPUSCULAR HGB 29.4 pg (27.0-31.0); MEAN CORPUSCULAR HGB CONC 33.8 g/dl (33.0-37.0); MEAN PLATELET VOLUME 9.4 fl (9.6-12.3); MONO # 1.1 10*3/uL (0.1-1.0); MONO % 11.6 % (3.0-9.0); NEUT # 7.3 10*3/uL (2.3-7.9); NEUT % 77.8 % (47.0-73.0); PLATELET COUNT AUTOMATED 204 10*3/uL (130-400); RED BLOOD COUNT 2.48 10*6/uL (4.10-5.10); WHITE BLOOD COUNT 9.4 10*3/uL (4.8-10.8)
[2018-11-06 06:14] LABS: ACT PARTIAL THROMBO TIME 27.9 SECONDS (20.8-31.5); INTERNATIONAL NORM RATIO 1.1 (2.0-3.5)
[2018-11-06 06:43] LABS: VITAMIN D, 25-HYDROXY 43.1 ng/mL (30-100)
[2018-11-06 08:00] VITALS: BP 146/60
[2018-11-06 12:00] VITALS: BP 112/44
[2018-11-06 15:11] LABS: BASO % 0.2 % (0.0-1.0); EOS % 0.6 % (1.0-4.0); HEMATOCRIT 21.5 % (37.0-47.0); HEMOGLOBIN 7.2 g/dl (12.0-16.0); LYMPH # 0.7 10*3/uL (1.3-4.4); LYMPH % 11.3 % (27.0-41.0); MEAN CELL VOLUME 86.7 fl (81.0-99.0); MEAN CORPUSCULAR HGB CONC 33.5 g/dl (33.0-37.0); MEAN PLATELET VOLUME 8.8 fl (9.6-12.3); MONO # 0.8 10*3/uL (0.1-1.0); MONO % 12.7 % (3.0-9.0); NEUT # 4.9 10*3/uL (2.3-7.9); NEUT % 74.3 % (47.0-73.0); PLATELET COUNT AUTOMATED 193 10*3/uL (130-400); RED BLOOD COUNT 2.48 10*6/uL (4.10-5.10); RED CELL DISTRI WIDTH 14.9 % (0-14.5); WHITE BLOOD COUNT 6.5 10*3/uL (4.8-10.8)
[2018-11-06 15:28] LABS: CREATININE 4.83 mg/dL (0.55-1.02); POTASSIUM 4.7 mmol/L (3.5-5.1)
[2018-11-06 16:00] VITALS: BP 115/26
[2018-11-06 20:00] VITALS: BP 131/59
[2018-11-07] VITALS: BP 135/62
[2018-11-07 04:00] VITALS: BP 136/59
[2018-11-07 05:44] LABS: ALBUMIN 2.5 gm/dl (3.1-4.5); CREATININE 4.48 mg/dL (0.55-1.02); POTASSIUM 3.9 mmol/L (3.5-5.1); TOTAL PROTEIN 5.5 gm/dL (6.4-8.2)
[2018-11-07 05:56] LABS: BASO % 0.7 % (0.0-1.0); EOS # 0.2 10*3/uL (0.0-0.4); EOS % 3.6 % (1.0-4.0); HEMATOCRIT 21.2 % (37.0-47.0); HEMOGLOBIN 7.2 g/dl (12.0-16.0); MEAN CELL VOLUME 87.2 fl (81.0-99.0); MEAN CORPUSCULAR HGB 29.6 pg (27.0-31.0); MONO # 0.7 10*3/uL (0.1-1.0); MONO % 15.5 % (3.0-9.0); NEUT # 2.5 10*3/uL (2.3-7.9); NEUT % 56.9 % (47.0-73.0); PLATELET COUNT AUTOMATED 179 10*3/uL (130-400); RED BLOOD COUNT 2.43 10*6/uL (4.10-5.10); RED CELL DISTRI WIDTH 14.6 % (0-14.5); WHITE BLOOD COUNT 4.5 10*3/uL (4.8-10.8)
[2018-11-07 07:05] LABS: HEPATITIS B SURFACE AG Negative (Negative); HEPATITIS C VIRUS ANTIBODY 0.1 s/co (0.0-0.9)
[2018-11-07 08:00] VITALS: BP 150/69
[2018-11-07 16:00] VITALS: BP 145/55
[2018-11-07 20:00] VITALS: BP 146/65
[2018-11-08] VITALS (8 sets, daily range): BP systolic 140–160; BP diastolic 55–77
[2018-11-08 06:04] LABS: BASO % 0.4 % (0.0-1.0); EOS # 0.3 10*3/uL (0.0-0.4); EOS % 4.7 % (1.0-4.0); HEMATOCRIT 20.5 % (37.0-47.0); HEMOGLOBIN 6.9 g/dl (12.0-16.0); LYMPH # 0.9 10*3/uL (1.3-4.4); LYMPH % 15.6 % (27.0-41.0); MEAN CELL VOLUME 87.6 fl (81.0-99.0); MEAN CORPUSCULAR HGB 29.5 pg (27.0-31.0); MEAN CORPUSCULAR HGB CONC 33.7 g/dl (33.0-37.0); MEAN PLATELET VOLUME 9.2 fl (9.6-12.3); MONO # 0.6 10*3/uL (0.1-1.0); MONO % 11.6 % (3.0-9.0); NEUT # 3.7 10*3/uL (2.3-7.9); PLATELET COUNT AUTOMATED 191 10*3/uL (130-400); RED BLOOD COUNT 2.34 10*6/uL (4.10-5.10); RED CELL DISTRI WIDTH 14.5 % (0-14.5); WHITE BLOOD COUNT 5.5 10*3/uL (4.8-10.8)
[2018-11-08 07:01] LABS: ALBUMIN 2.5 gm/dl (3.1-4.5); CREATININE 3.29 mg/dL (0.55-1.02); POTASSIUM 3.9 mmol/L (3.5-5.1)
[2018-11-08 11:42] LABS: HEMATOCRIT 24.4 % (37.0-47.0); HEMOGLOBIN 8.4 g/dl (12.0-16.0)
[2018-11-09] VITALS: BP 140/80
[2018-11-09 05:54] LABS: BASO % 0.4 % (0.0-1.0); EOS # 0.3 10*3/uL (0.0-0.4); EOS % 5.2 % (1.0-4.0); HEMATOCRIT 25.5 % (37.0-47.0); HEMOGLOBIN 8.6 g/dl (12.0-16.0); LYMPH % 19.4 % (27.0-41.0); MEAN CELL VOLUME 87.6 fl (81.0-99.0); MEAN CORPUSCULAR HGB 29.6 pg (27.0-31.0); MEAN CORPUSCULAR HGB CONC 33.7 g/dl (33.0-37.0); MONO # 0.5 10*3/uL (0.1-1.0); MONO % 10.1 % (3.0-9.0); NEUT # 3.3 10*3/uL (2.3-7.9); NEUT % 64.1 % (47.0-73.0); PLATELET COUNT AUTOMATED 188 10*3/uL (130-400); RED BLOOD COUNT 2.91 10*6/uL (4.10-5.10); RED CELL DISTRI WIDTH 13.8 % (0-14.5); WHITE BLOOD COUNT 5.2 10*3/uL (4.8-10.8)
[2018-11-09 06:03] LABS: CREATININE 2.07 mg/dL (0.55-1.02); POTASSIUM 3.7 mmol/L (3.5-5.1)
[2018-11-09 08:00] VITALS: BP 151/62
[2018-11-09 12:00] VITALS: BP 146/59
[2018-11-09 16:00] VITALS: BP 151/51
[2018-11-09 20:00] VITALS: BP 172/70
[2018-11-10] VITALS: BP 149/62
[2018-11-10 06:32] LABS: BASO % 0.4 % (0.0-1.0); EOS # 0.3 10*3/uL (0.0-0.4); EOS % 4.7 % (1.0-4.0); HEMATOCRIT 27.5 % (37.0-47.0); HEMOGLOBIN 9.3 g/dl (12.0-16.0); LYMPH # 0.8 10*3/uL (1.3-4.4); LYMPH % 14.1 % (27.0-41.0); MEAN CORPUSCULAR HGB 29.4 pg (27.0-31.0); MEAN CORPUSCULAR HGB CONC 33.8 g/dl (33.0-37.0); MONO # 0.7 10*3/uL (0.1-1.0); MONO % 11.8 % (3.0-9.0); NEUT # 3.8 10*3/uL (2.3-7.9); NEUT % 67.9 % (47.0-73.0); PLATELET COUNT AUTOMATED 226 10*3/uL (130-400); RED BLOOD COUNT 3.16 10*6/uL (4.10-5.10); RED CELL DISTRI WIDTH 13.7 % (0-14.5); WHITE BLOOD COUNT 5.5 10*3/uL (4.8-10.8)
[2018-11-10 06:51] LABS: CREATININE 1.47 mg/dL (0.55-1.02); POTASSIUM 3.6 mmol/L (3.5-5.1)
[2018-11-10 08:00] VITALS: BP 148/80
[2018-11-10] MEDS ORDERED: B12,B-12,B 12500 MC1 PO (11:17)
[2018-11-10] MEDS ORDERED: JANUVIA50 MG PO (11:20)
[2018-11-10 12:00] VITALS: BP 139/53
[2018-11-10 14:00] VITALS: BP 142/64
== END 2018-11-10 14:37 | DRG 682 ==
LOC: ED 06:58 → 4E 09:40 → ICCU 09:40 → EDHOLD 09:40 → ICCU 09:45 → 4E 11-07 14:14
PROVIDERS: Emergency Medicine; Internal Medicine; Internal Medicine Nephrology; Student in an Organized Health Care Education/Training Program
PROC: 02H633Z Insertion of Infusion Device into Right Atrium, Percutaneous Approach (ICD-10-PCS; principal; 2018-11-05)
PROC: 02H633Z Insertion of Infusion Device into Right Atrium, Percutaneous Approach (ICD-10-PCS; 2018-11-05)
PROC: B2141ZZ Fluoroscopy of Right Heart using Low Osmolar Contrast (ICD-10-PCS; 2018-11-05)
PROC: 5A1D70Z Performance of Urinary Filtration, Intermittent, Less than 6 Hours Per Day (ICD-10-PCS; 2018-11-05)
PROC: B244ZZZ Ultrasonography of Right Heart (ICD-10-PCS; 2018-11-05)
PROC: 30243N1 Transfusion of Nonautologous Red Blood Cells into Central Vein, Percutaneous Approach (ICD-10-PCS; 2018-11-08)
DX: N17.0 Acute kidney failure with tubular necrosis (principal); E43 Unspecified severe protein-calorie malnutrition; N39.0 Urinary tract infection, site not specified; E72.20 Disorder of urea cycle metabolism, unspecified; E87.2 Acidosis; E87.5 Hyperkalemia; F31.9 Bipolar disorder, unspecified; I10 Essential (primary) hypertension; E78.5 Hyperlipidemia, unspecified; F41.9 Anxiety disorder, unspecified; F20.9 Schizophrenia, unspecified; E11.65 Type 2 diabetes mellitus with hyperglycemia; R31.9 Hematuria, unspecified; B96.1 Klebsiella pneumoniae [K. pneumoniae] as the cause of diseases classified elsewhere; K59.00 Constipation, unspecified; D50.9 Iron deficiency anemia, unspecified; D51.9 Vitamin B12 deficiency anemia, unspecified; D64.9 Anemia, unspecified; E83.51 Hypocalcemia; E83.39 Other disorders of phosphorus metabolism; R76.8 Other specified abnormal immunological findings in serum; E66.9 Obesity, unspecified; Z88.8 Allergy status to other drugs, medicaments and biological substances; Z90.710 Acquired absence of both cervix and uterus; Z98.42 Cataract extraction status, left eye; Z98.41 Cataract extraction status, right eye; Z82.49 Family history of ischemic heart disease and other diseases of the circulatory system; Z83.3 Family history of diabetes mellitus; Z80.9 Family history of malignant neoplasm, unspecified; Z79.82 Long term (current) use of aspirin; Z79.84 Long term (current) use of oral hypoglycemic drugs; Z79.899 Other long term (current) drug therapy; Z68.32 Body mass index [BMI] 32.0-32.9, adult

== ENCOUNTER → 2018-12-10 | Outpatient (CLI) | payer MEDICARE, MEDICAID ==
[~2018-12-10] MED LIST changes: +B12,B-12,B 12500 MC1 PO; +JANUVIA50 MG PO; +LIPITOR10 MG PO; +REMERON15 M2 PO
[2018-12-10 12:07] LABS: BILIRUBIN NEGATIVE (NEGATIVE); BLOOD NEGATIVE (NEGATIVE); CLARITY SL CLOUDY (CLEAR); COLOR YELLOW (YELLOW); GLUCOSE 1+ (NEGATIVE); KETONE NEGATIVE (NEGATIVE); LEUKO ESTERASE TRACE (NEGATIVE); NITRITE NEGATIVE (NEGATIVE); UROBILINOGEN 0.2 E.U./dl (0.2-1.0)
[2018-12-10 12:28] LABS: BACTERIA 3+
[2018-12-10 13:18] LABS: VITAMIN D, 25-HYDROXY 46.7 ng/mL (30-100)
[2018-12-11 10:11] LABS: CREATININE,URINE 134.3 mg/dL (Not Estab.); MICRO ALBUMIN/CRE RATIO 8.2 (0.0-30.0)
== END | disposition home or self-care (01) ==
LOC: LAB 11:31
PROVIDERS: Internal Medicine Nephrology
DX: N17.9 Acute kidney failure, unspecified (principal); E55.9 Vitamin D deficiency, unspecified; Z79.899 Other long term (current) drug therapy

== ENCOUNTER → 2019-01-08 | Outpatient (CLI) | payer MEDICARE, MEDICAID | END | disposition home or self-care (01) | LOC: MAMMO 09:47 | DX: Z12.31 Encounter for screening mammogram for malignant neoplasm of breast (principal); M85.88 Other specified disorders of bone density and structure, other site; I10 Essential (primary) hypertension; E11.8 Type 2 diabetes mellitus with unspecified complications; E83.51 Hypocalcemia; Z78.0 Asymptomatic menopausal state; Z90.710 Acquired absence of both cervix and uterus ==

== ENCOUNTER → 2019-03-20 | Outpatient (CLI) | payer MEDICARE ==
[2019-04-01 17:09] LABS: GTG BAND RESOLUTION ACHIEVED 400 (.)
== END | disposition home or self-care (01) ==
LOC: RESCLI 00:41
PROVIDERS: Internal Medicine
DX: D50.8 Other iron deficiency anemias (principal); D63.8 Anemia in other chronic diseases classified elsewhere; I10 Essential (primary) hypertension; E11.9 Type 2 diabetes mellitus without complications; E78.5 Hyperlipidemia, unspecified; Z79.899 Other long term (current) drug therapy; Z88.8 Allergy status to other drugs, medicaments and biological substances; R79.89 Other specified abnormal findings of blood chemistry; D64.9 Anemia, unspecified; D50.9 Iron deficiency anemia, unspecified; D72.810 Lymphocytopenia

== ENCOUNTER → 2019-10-28 | Outpatient (CLI) | payer MEDICARE, OTHER ==
[2019-10-28 11:47] LABS: IRON 45 ug/dL (50-170); TOTAL IRON BINDING CAPACITY 198 ug/dl (250-450)
== END | disposition home or self-care (01) ==
LOC: LAB 10:45
PROVIDERS: Internal Medicine Nephrology
DX: E11.8 Type 2 diabetes mellitus with unspecified complications (principal); N17.0 Acute kidney failure with tubular necrosis; D50.9 Iron deficiency anemia, unspecified; I10 Essential (primary) hypertension; E55.9 Vitamin D deficiency, unspecified; E87.5 Hyperkalemia

== ENCOUNTER → 2020-04-14 | Outpatient (CLI) | payer MEDICARE, OTHER | END | disposition home or self-care (01) | LOC: MAMMO 08:30 | DX: Z12.31 Encounter for screening mammogram for malignant neoplasm of breast (principal) ==

== ENCOUNTER → 2020-04-28 | Day surgery (SDC) | payer MEDICARE, OTHER ==
[~2020-04-28] VITALS: Ht 153.6 cm; Wt 82.6 kg
[~2020-04-28] MED LIST changes: +BASAG SOL SC; +IRON325 M1 PO; +LASIX20 MG PO; +LOSARTAN POTASS50 M1 PO; +MIRALAX POWDER17 G1 PO; +OYSTERCAL-D 501 EACH PO; +POTASSIUM CHLO10 ME5 PO; +TRICOR48 MG PO; +VITAMIN D3100 MCG PO
[2020-04-28 08:00] VITALS: BP 109/80
[2020-04-28 09:27] VITALS: BP 126/46
[2020-04-28 09:40] VITALS: BP 139/58
[2020-04-28 09:57] VITALS: BP 129/58
== END | disposition home or self-care (01) ==
LOC: SDC 04-25 01:53
DX: Z12.11 Encounter for screening for malignant neoplasm of colon (principal); D12.5 Benign neoplasm of sigmoid colon; I10 Essential (primary) hypertension; E78.5 Hyperlipidemia, unspecified; F41.9 Anxiety disorder, unspecified; E11.40 Type 2 diabetes mellitus with diabetic neuropathy, unspecified; Z86.010 Personal history of colon polyps; Z79.82 Long term (current) use of aspirin; Z79.899 Other long term (current) drug therapy; Z83.3 Family history of diabetes mellitus; Z82.49 Family history of ischemic heart disease and other diseases of the circulatory system

== ENCOUNTER → 2021-06-15 | Outpatient (CLI) | payer MEDICARE, OTHER | END | disposition home or self-care (01) | LOC: MAMMO 05-04 09:30 | PROVIDERS: ATTEND Internal Medicine | DX: Z12.31 Encounter for screening mammogram for malignant neoplasm of breast (principal); N64.89 Other specified disorders of breast ==

== ENCOUNTER → 2021-10-31 | Outpatient (CLI) | payer MEDICARE, OTHER | END | disposition home or self-care (01) | LOC: CARD 14:43 | PROVIDERS: ATTEND Internal Medicine | DX: M79.89 Other specified soft tissue disorders (principal); I10 Essential (primary) hypertension; I36.1 Nonrheumatic tricuspid (valve) insufficiency ==

== ENCOUNTER → 2022-09-17 | Outpatient (CLI) | payer MEDICARE, OTHER | LOC: RAD 13:15 | PROVIDERS: ATTEND Internal Medicine | DX: M85.851 Other specified disorders of bone density and structure, right thigh (principal); E55.9 Vitamin D deficiency, unspecified; N95.9 Unspecified menopausal and perimenopausal disorder; Z78.0 Asymptomatic menopausal state ==

== ENCOUNTER → 2022-10-04 | Outpatient (CLI) | payer MEDICARE, OTHER | END | disposition home or self-care (01) | LOC: MAMMO 10-01 11:00 | PROVIDERS: ATTEND Family Medicine | DX: Z12.31 Encounter for screening mammogram for malignant neoplasm of breast (principal); N64.9 Disorder of breast, unspecified; N63.0 Unspecified lump in unspecified breast ==

== ENCOUNTER → 2023-10-14 | Outpatient (CLI) | payer MEDICARE, OTHER | END | disposition home or self-care (01) | LOC: MAMMO 09:56 | PROVIDERS: ATTEND Internal Medicine | DX: Z12.31 Encounter for screening mammogram for malignant neoplasm of breast (principal) ==

== ENCOUNTER → 2024-01-06 | Day surgery (SDC) | payer MEDICARE, OTHER ==
[~2024-01-06] MED LIST changes: +ASPIRIN, CHEWABLE 81 MG TAB PO SCH; +ATORVASTATIN CALCIUM 10 MG TAB PO SCH; +CARVEDILOL 6.25 MG TAB PO SCH; +CYANOCOBALAMIN 500 MCG TAB PO SCH; +EMPAGLIFLOZIN 10 MG TABLET PO SCH; +FENOFIBRATE 145 MG TAB PO SCH; +FERROUS SULFATE 325 MG TAB PO SCH; +FUROSEMIDE 40 MG TAB PO SCH; +GABAPENTIN 100 MG CAP PO SCH; +JARDIANCE10 MG PO; +Ketamine Hydrochloride 50 MG/5 ML SYRINGE IV ONE; +Lactated Ringer's Solution 500 ML IV SCH; +Levothyroxine Sodium 25 MCG TAB PO SCH; +Lidocaine Hydrochloride 2% 10 ML AMP IV ONE; +MAG-OXIDE200 MG PO; +MOUNJARO2.5 MG/0.1 SQ; +Midazolam Hydrochloride 2 MG/2 ML VIAL IV ONE; +Midazolam Hydrochloride 2 MG/2 ML VIAL IV STA; +PROPOFOL 200 MG/20 ML VIAL IV ONE; +Polyethylene Glycol 3350 17 GM PACKET PO PRN; +SODIUM CHLORIDE 0.9% 1,000 ML IV ONE; +SYNTHROID25 MCG PO; +VISTARIL25 MG PO; +hydrOXYzine pamoate 25 MG CAP PO SCH
[2024-01-06 09:11] VITALS: BP 151/47
[2024-01-06 10:50] VITALS: BP 112/55
[2024-01-06 11:04] VITALS: BP 113/62
[2024-01-06 11:20] VITALS: BP 110/62
[2024-01-06 11:32] VITALS: BP 112/55
== END ==
LOC: SDC 12-19 09:30
PROVIDERS: ATTEND Surgery
DX: Z12.11 Encounter for screening for malignant neoplasm of colon (principal); I10 Essential (primary) hypertension; E11.9 Type 2 diabetes mellitus without complications; F41.9 Anxiety disorder, unspecified; Z79.890 Hormone replacement therapy; Z79.82 Long term (current) use of aspirin; Z79.899 Other long term (current) drug therapy; Z90.710 Acquired absence of both cervix and uterus; Z98.42 Cataract extraction status, left eye; Z98.41 Cataract extraction status, right eye; Z85.9 Personal history of malignant neoplasm, unspecified
CPT/HCPCS: 00812; G0121

== ENCOUNTER 2024-02-19 17:14 | Inpatient (IN) | payer OTHER ==
[~2024-02-19] VITALS: Ht 154.9 cm; Wt 92.1 kg
[~2024-02-19 17:14] MED LIST changes: +ACETAMINOPHEN325 M2 PO; -ASPIRIN, CHEWABLE 81 MG TAB PO SCH; -ATORVASTATIN CALCIUM 10 MG TAB PO SCH; -CARVEDILOL 6.25 MG TAB PO SCH; +COREG12.5 M1 PO; -CYANOCOBALAMIN 500 MCG TAB PO SCH; -EMPAGLIFLOZIN 10 MG TABLET PO SCH; -FENOFIBRATE 145 MG TAB PO SCH; -FERROUS SULFATE 325 MG TAB PO SCH; -FUROSEMIDE 40 MG TAB PO SCH; -GABAPENTIN 100 MG CAP PO SCH; -Ketamine Hydrochloride 50 MG/5 ML SYRINGE IV ONE; +LAC-HYDRIN FIV226 GM TP; -Lactated Ringer's Solution 500 ML IV SCH; -Levothyroxine Sodium 25 MCG TAB PO SCH; -Lidocaine Hydrochloride 2% 10 ML AMP IV ONE; -Midazolam Hydrochloride 2 MG/2 ML VIAL IV ONE; -Midazolam Hydrochloride 2 MG/2 ML VIAL IV STA; -PROPOFOL 200 MG/20 ML VIAL IV ONE; -Polyethylene Glycol 3350 17 GM PACKET PO PRN; -SODIUM CHLORIDE 0.9% 1,000 ML IV ONE; -hydrOXYzine pamoate 25 MG CAP PO SCH
[2024-02-19 17:20] VITALS: BP 111/49
[2024-02-19] MEDS ORDERED: Midazolam Hydrochloride 2 MG/2 ML VIAL IV PRN (17:35)
[2024-02-19] MEDS ORDERED: ATROPINE SULFATE 1% 2 ML BOTTLE SL PRN (17:35)
[2024-02-19] MEDS ORDERED: MORPHINE Sulfate 2 MG/ML SYR IV PRN (17:35)
[2024-02-19 18:00] VITALS: BP 98/41
[2024-02-19] MEDS ORDERED: MORPHINE Sulfate 50 MG in SODIUM CHLORIDE 0.9% 45 ML IV SCH (18:10)
[2024-02-19 20:00] VITALS: BP 99/41
== END 2024-02-20 06:27 | DRG 871 ==
LOC: ICCU 17:14 → 4E 17:14
PROVIDERS: ADMIT Family Medicine; ATTEND Family Medicine
PROC: 5A0935A Assistance with Respiratory Ventilation, Less than 24 Consecutive Hours, High Flow/Velocity Cannula (ICD-10-PCS; principal; 2024-02-19)
DX: A41.9 Sepsis, unspecified organism (principal); E43 Unspecified severe protein-calorie malnutrition; N17.0 Acute kidney failure with tubular necrosis; E87.1 Hypo-osmolality and hyponatremia; N30.00 Acute cystitis without hematuria; Z66 Do not resuscitate; R65.20 Severe sepsis without septic shock; I46.9 Cardiac arrest, cause unspecified; E78.2 Mixed hyperlipidemia; E11.40 Type 2 diabetes mellitus with diabetic neuropathy, unspecified; F20.9 Schizophrenia, unspecified; F31.9 Bipolar disorder, unspecified; D64.9 Anemia, unspecified; E83.41 Hypermagnesemia; E66.9 Obesity, unspecified; E83.39 Other disorders of phosphorus metabolism; R74.01 Elevation of levels of liver transaminase levels; Z51.5 Encounter for palliative care; Z79.4 Long term (current) use of insulin; Z68.38 Body mass index [BMI] 38.0-38.9, adult